=== PATIENT | female | born 1990 ===

== ENCOUNTER → 2023-07-26 13:48 | Outpatient (CLI) | payer OTHER, SELFPAY ==
--- NOTE | 2023-07-26 | DI.US.S_ITS ---
PROCEDURE: US PELVIC COMPLETE INDICATIONS: Irregular menstruation TECHNIQUE: Real-time scanning was performed of the pelvic organs, with image documentation. Additional endovaginal scanning was necessary due to incomplete visualization of the adnexal and endometrial structures by transabdominal scanning. COMPARISON: None. FINDINGS: Uterus: Uterus is anteverted and normal in size at 6.7 x 4.6 x 2.8 cm. The myometrium is homogeneous. The endometrium measures 2 mm combined thickness. Ovaries: The right ovary measures 3.3 x 1.9 x 1.6 cm. Small echogenic foci on the ovary periphery, nonspecific. Less than 12 follicles noted. Left ovary is surgically absent Other: No pathologic free abdominal or pelvic fluid. IMPRESSION: 1. Non-specific echogenic foci associated with the peripheral right ovary. Consider six-month follow-up assessment. 2. Normal appearing uterus. Approved by: Kwabena Barkley M.D. on 07/26/2023 at 20:46
== END ==
LOC: US 13:50
PROVIDERS: PCP Family Medicine; Referring Provider Nurse Practitioner Family; Visit Provider Nurse Practitioner Family
DX: N92.6 Irregular menstruation, unspecified (principal)
CPT/HCPCS: 76830; 76856

== ENCOUNTER → 2024-04-24 07:59 | Outpatient (CLI) | payer OTHER, SELFPAY ==
--- NOTE | 2024-04-24 17:45 | DI.NM.S_ITS ---
DATE OF SERVICE: 04/24/2024 PROCEDURE: Exercise stress test. INDICATIONS: Chest pain. CARDIAC STRESS: The patient underwent exercise stress test under the supervision of an attending staff. The patient walked on Imer protocol for 10 minutes and achieved maximum heart rate of 190, which was 101% of target heart rate. Resting blood pressure 110/82 and peak blood pressure 162/90. Baseline rhythm was sinus with nonspecific upsloping ST depression in inferolateral leads without any significant worsening or new ischemic changes during stress. Rare PVCs. No chest pain. Some shortness of breath. Normal recovery. CONCLUSION: Exercise stress test did not reveal any obvious inducible ischemic changes. Normal hemodynamic response. Achieved 12.8 METs of workload. PEBBLES -3%. Fair exercise tolerance. Normal hemodynamic response. No significant arrhythmias. No anginal symptoms. Overall, low-risk exercise stress test. Flori Anne - KAREN/yobani/HELEN doc#: [id number]/job#: [id number] dd: 04/24/2024 16:59:00 dt: 04/24/2024 17:15:00 DICTATING /COPIES TO: Lainey Tobar MD COPIES MNE: PRABHAKAR;
== END ==
LOC: NUCM 08:01
PROVIDERS: PCP Family Medicine; Referring Provider Internal Medicine; Visit Provider Internal Medicine
DX: R07.9 Chest pain, unspecified (principal)
CPT/HCPCS: 93017

== ENCOUNTER → 2024-06-25 09:22 | Outpatient (CLI) | payer OTHER, SELFPAY ==
--- NOTE | 2024-06-25 09:22 | DI.ECHO.S_ITS ---
[facility] : : [address] : : [place] : : [id number] : : Phone: [phone] Echocardiogram Report + + :Name: MAE MARTINEZ Study Date: 06/25/2024 Height: 63 in : :[facility] ReadingLocation: Weight: 185 lb : : Gender: Female BSA: 1.9 m2 : :: 1990 Age: 33 yrs BP: 121/80 mmHg: :Reason For Study: TACHYCARDIA : :Ordering Physician: KEVIN DAVID Performed By: Kati Grider : :Referring: KEVIN DAVID : + + Interpretation Summary 1. The left ventricular contractility is normal. Estimate ejection fraction is greater than 60% with no segmental wall motion abnormalities. No LVH. Normal diastolic function. 2. The right ventricular contractility is normal. 3. All cardiac chambers are of normal size. 4. No significant valvular abnormalities. 5. No obvious intracardiac shunts. 6. No obvious intracardiac masses nor thrombi. 7. No hemodynamically significant pericardial effusion. 8. Low right-sided filling pressures. Conclusion: Normal biventricular function with no significant valvular nor structural abnormalities. Procedure: A two-dimensional transthoracic echocardiogram with color flow and Doppler was performed. The study quality was technically adequate. There is no prior echocardiogram noted for this patient. The patient was in sinus rhythm with heart rates between 57-77 bpm during the exam. Left Ventricle: The left ventricle is normal in size and wall thickness. The ejection fraction is estimated to be 60-65%. Right Ventricle: The right ventricle is normal in size and function. Atria: The left atrial size is normal. Right atrial size is normal. There is no Doppler evidence for an interatrial shunt. Mitral Valve: The mitral valve leaflets appear to open well. There is no mitral annular calcification. There is trace mitral regurgitation. Aortic Valve: The aortic valve is trileaflet. The aortic valve opens well. There is no aortic valve stenosis. No aortic regurgitation is present. Tricuspid Valve: The tricuspid valve leaflets are thin and pliable. There is trace tricuspid regurgitation. The right ventricular systolic pressure is estimated to be at least 19 mmHg based on an estimated right atrial pressure of 3 mm Hg. Pulmonic Valve: The pulmonic valve leaflets are thin and pliable; valve motion is normal. There is no pulmonic valvular regurgitation. Great Vessels: The aortic root is normal size. The dimensions of the ascending aorta are normal. The IVC is of normal diameter and collapses greater than 50% with a sniff. This suggests a low right atrial pressure of 3 mm Hg. Pericardium/ Pleura There is no pericardial effusion. There is no pleural effusion. MMode/2D Measurements & Calculations LVIDd: 4.7 cm LVOT diam: 1.9 cm LVIDs: 2.9 cm Ao root diam: 2.7 cm FS: 39.0 % asc Aorta Diam: 2.8 cm IVSd: 0.75 cm Ao Arch Diam (Prox Trans): 2.3 cm LVPWd: 0.68 cm LV peña. diameter/BSA (cm/m^2): 2.5 LV sys. diameter/BSA (cm/m^2): 1.5 LA A2 area: 14.5 cm2 RA long axis: 3.9 cm LA A4 area: 12.5 cm2 RA area: 10.8 cm2 LA length (vol): 4.8 cm RA vol: 25.9 ml LA vol: 32.3 ml RA : 13.9 ml/m2 LA vol index: 17.2 ml/m2 IVC diam: 0.93 cm RVD1 (basal): 3.5 cm TAPSE: 2.3 cm Doppler Measurements & Calculations Ao V2 max: 161.9 cm/sec LVOT Max Karson: 124.0 cm/sec Ao V2 mean: 105.5 cm/sec LV V1 max P.2 mmHg Ao max P.5 mmHg LV V1 VTI: 24.3 cm Ao mean P.2 mmHg ZOE(I,D): 2.5 cm2 Ao V2 VTI: 27.9 cm ZOE(V,D): 2.2 cm2 sev ratio: 0.87 ZOE indexed to BSA (cm^2/m^2): 1.4 MV E max karson: 85.8 cm/sec TR max karson: 200.6 cm/sec MV A max karson: 36.2 cm/sec TR max P.1 mmHg MV E/A: 2.4 PA V2 max: 109.8 cm/sec Med Peak E' Karson: 11.3 cm/sec PA V2 mean: 76.1 cm/sec E/E' med: 7.6 PA mean P.5 mmHg Lat Peak E' Karson: 14.0 cm/sec PA pr(Accel): 14.8 mmHg E/E' lat: 6.1 E/e' average: 6.9 MV dec time: 0.22 sec SVLVOT): 70.9 ml Reading Physician:UZMA
== END ==
PROVIDERS: PCP Family Medicine; Referring Provider Internal Medicine; Visit Provider Internal Medicine
DX: I47.20 Ventricular tachycardia, unspecified (principal)
CPT/HCPCS: 93306